=== PATIENT | male | born 1975 | race Caucasian/White ===

== ENCOUNTER 2019-04-21 08:40 | Emergency (ER) | payer SELFPAY ==
[~2019-04-21] VITALS: Ht 177.8 cm; Wt 79.0 kg
[2019-04-21] MEDS ORDERED: HYDROCODONE/ACETAMINOPHEN 5/325MG TABLET PO ONE (10:00)
[2019-04-21] MEDS ORDERED: KETOROLAC 60MG/2ML VIAL IM ONE (10:00)
[2019-04-21 11:26] VITALS: BP 102/75
== END 2019-04-21 11:28 | disposition home or self-care (01) ==
LOC: ER 08:56
DX: S39.012A Strain of muscle, fascia and tendon of lower back, initial encounter (principal); V49.49XA Driver injured in collision with other motor vehicles in traffic accident, initial encounter; Y93.89 Activity, other specified; Y92.89 Other specified places as the place of occurrence of the external cause; Y99.8 Other external cause status
CPT/HCPCS: 96372; 99283; J1885